=== PATIENT | female | born 1940 | race Caucasian/White ===

== ENCOUNTER → 2020-12-30 02:29 | Outpatient (CLI) | payer MEDICARE, OTHER, SELFPAY ==
[2020-12-30 22:46] LABS: SARS-CoV-2 RNA PCR Negative
== END ==
PROVIDERS: PCP Internal Medicine; Visit Provider Obstetrics & Gynecology
DX: Z01.812 Encounter for preprocedural laboratory examination (principal); Z20.822 Contact with and (suspected) exposure to COVID-19
CPT/HCPCS: C9803; U0003; U0005

== ENCOUNTER 2020-12-30 12:54 | Outpatient (CLI) | payer MEDICARE, OTHER, SELFPAY ==
--- NOTE | 2020-12-30 13:12 | ECG_ITS ---
Measurements Intervals Stollings Rate: 57 P: 32 KS: 156 QRS: 11 QRSD: 89 T: 30 QT: 401 QTc: 392 Interpretive Statements SINUS BRADYCARDIA BASELINE ARTIFACT- I, II, III, AVR, AVL, AVF, V1-V6 BORDERLINE ECG Electronically Signed On 12-30-2020 13:56:43 [employer] by Stanley Oscar D.O.
[2020-12-30 13:35] LABS: Hematocrit 42.1 % (37.0-47.0); Hemoglobin 13.9 g/dL (12.0-15.0)
== END 2020-12-30 12:55 | disposition home or self-care (01) ==
PROVIDERS: PCP Internal Medicine; Visit Provider Obstetrics & Gynecology
DX: Z01.818 Encounter for other preprocedural examination (principal); N95.0 Postmenopausal bleeding; I10 Essential (primary) hypertension; R94.31 Abnormal electrocardiogram [ECG] [EKG]
CPT/HCPCS: 36415; 85014; 85018; 93005

== ENCOUNTER 2021-01-02 01:00 | Day surgery (SDC) | payer MEDICARE, OTHER, SELFPAY ==
[2020-12-29 15:06] VITALS: BMI 18.9
--- NOTE | 2020-12-30 11:31 | PM.IMHP ---
H&P: HPI History of Present Illness Date/Time: 12/30/20 11:31 Chief Complaint: postmenopausal bleeding Narrative: Opal Segura is a 80 year old female admitted for hysteroscopy dilatation curettage secondary to vaginal bleeding. She has never taken hormones. She is not sexually active. She noticed red discharge vaginally and she underwent an exam which showed red blood cells. Risks and benefits of hysteroscopy and dilatation and curettage reviewed in full. She received the ACOG handout entitled hysteroscopy as well as dilatation and curettage respectively. She had all questions answered. She asked to proceed Review of Systems Review of Systems: All systems reviewed & are unremarkable except as noted in HPI and below PMFSH Social History Social History Smoking status: Never smoker Spiritual care concerns: No Meds Home Medications and Allergies Home Medications Medication Instructions Recorded Confirmed Type brinzolamide [Azopt] 1 drp OPHTHALMIC (EYE) DAILY 12/29/20 12/29/20 History levothyroxine 50 mcg PO DAILY 12/29/20 12/29/20 History metoprolol tartrate 50 mg PO DAILY 12/29/20 12/29/20 History raloxifene 60 mg PO DAILY 12/29/20 12/29/20 History timolol maleate 1 drp OPHTHALMIC (EYE) DAILY 12/29/20 12/29/20 History Allergies Allergy/AdvReac Type Severity Reaction Status Date / Time No Known Allergies Allergy Verified 12/29/20 14:33 Exam Const: General: no acute distress Eyes: General: appearance normal, both eyes and all related structures Neck: Neck: supple and no JVD Thyroid: thyroid normal Resp: Effort & Inspection: normal respiratory effort Auscultation: clear to auscultation bilaterally Cardio: Rate: regular rate Rhythm: regular rhythm GI: Inspection: non-distended GI Palp: Yes Soft to palpation, No Tenderness to palpation present (GI) and No Guarding due to palpation present (GI) Auscultation: normal bowel sounds : General: Yes bladder normal to inspection External Female Exam: normal external appearance Speculum Exam - Vagina: vaginal bleeding Speculum Exam - Cervix: Cervical os closed Bimanual exam- vagina & uterus: uterine size normal Skin: General skin exam: no rashes or lesions noted Extrem: General: normal to inspection and no edema Psych: Mental Status: mental status grossly normal Affect: normal affect Assessment and Plan Additional Plan impression: Postmenopausal bleeding Plan: Hysteroscopy / dilatation curettage
--- NOTE | 2021-01-02 06:31 | WPDHPUPDATE1 ---
History and Physical Update Update Date/Time: 01/02/21 06:31 History and Physical has been reviewed, including an updated exam of the patient. There are NO changes in the patient's condition. Risks, benefits, and alternatives have been discussed and questions answered. Patient agrees to proceed with procedure.
[2021-01-02] MEDS: ACETAMINOPHEN 500 MG TABLET 1000 MG PO (08:28)
[2021-01-02 08:32] VITALS: BP 137/87; PULSE 65; RESP 16; TEMP 36.3; O2SAT 100
--- NOTE | 2021-01-02 08:40 | WPDANESEPPF ---
Anes - Initial Pre Proc Eval Procedure: Operation Date: 01/02/21 10:15 Proposed Procedures p Hysteroscopy Dilation and Curettage - Hunter Fitzpatrick MD Date/Time: 01/02/21 08:40 Surgeon: Hunter Fitzpatrick MD Pre Op Diagnosis: Post Menopausal Bleeding Patient Data Age: 80 Gender: F Height: 1.6 m Weight: 48 kg Last Vital Signs Temp 36.3 C L 01/02/21 08:32 Pulse 65 01/02/21 08:32 Resp 16 01/02/21 08:32 BP 137/87 01/02/21 08:32 Pulse Ox 100 01/02/21 08:32 Allergies Allergy/AdvReac Type Severity Reaction Status Date / Time No Known Allergies Allergy Verified 01/02/21 08:23 Home Medications Medication Instructions Recorded Confirmed Type brinzolamide [Azopt] 1 drp OPHTHALMIC (EYE) DAILY 12/29/20 12/29/20 History levothyroxine 50 mcg PO DAILY 12/29/20 12/29/20 History metoprolol tartrate 50 mg PO DAILY 12/29/20 12/29/20 History raloxifene 60 mg PO DAILY 12/29/20 12/29/20 History timolol maleate 1 drp OPHTHALMIC (EYE) DAILY 12/29/20 12/29/20 History hydrocodone-acetaminophen 1 tablet PO Q6H PRN #14 tablet 01/02/21 Rx Patient hx anesthesia problems: none Family hx anesthesia problems: none PMFSH Past Medical History Medical History (Updated 01/02/21 @ 08:41 by Reg Mloina MD) HTN (hypertension) Hypothyroidism Social History Social History Smoking status: Never smoker Living arrangements: with family Spiritual care concerns: No Anes - Eval Final PreProcedure Day of Procedure 01/02/21 08:40 Patient weight: overweight Heart: regular rate and rhythm Lungs: clear to auscultation and normal air movement Airway: Mallampati scale class II Neurological: alert and oriented Last oral intake: >/= 8 hours ASA classification: II Emergent: no Anesthetic plan: proceed Anesthesia type and monitoring: general GIVS Informed Consent: The patient's anesthetic plan and its attendant risks and benefits were discussed with the patient/family/POA. Questions were solicited and answers provided to the satisfaction of the patient/family/POA.
[2021-01-02] MEDS: LACTATED RINGERS 1,000 ML 30 ML IV CONT (08:43)
--- NOTE | 2021-01-02 10:20 | P.OP_ITS ---
Procedure Note - Detailed Date of procedure: 01/02/21 Pre-op diagnosis: Post Menopausal Bleeding Surgeon: Hunter Fitzpatrick MD Postop diagnosis: Postmenopausal bleeding/suspicious appearing uterine polyp Procedure: Hysteroscopy: Dilatation curettage: Polypectomy. Anesthesia: IV sedation local EBL: 5cc Complications: None Findings: Uterus sounded to 8cm. The uterine polyp that was suspicious for adenocarcinoma of the endometrium. Description of procedure: The patient was prepped draped in the normal sterile fashion placed in the dorsal lithotomy position. Under excellent IV sedation weighted speculum was placed in posterior fornix of vagina. Anterior lip of the cervix grasped with single-tooth tenaculum and 2.5cc of 1% xylocaine anesthesia placed at 2, 4, 8, 10:00 a.m. on the cervix. The uterus sounded to 8cm. Serial dilatation with fragmented dilators performed followed by passage of the 5mm visualizing hysteroscope. Normal saline was used as visualizing medium. A moderate-sized polyp was seen at the uterine fundus. Using the polyp forceps this was grasped and removed piecemeal. The uterus was then scraped over the entire 360? until a good grating sound was heard. The instruments removed. Blood loss was estimated at5cc. All sponge, needle, instrument counts were cor rect. There were no immediate complications
[2021-01-02 10:27] VITALS: BP 100/63; PULSE 58; RESP 16; O2SAT 97
[2021-01-02 10:55] VITALS: BP 120/75; PULSE 55; RESP 16; O2SAT 97
== END 2021-01-02 11:11 | disposition home or self-care (01) ==
PROVIDERS: PCP Internal Medicine; Visit Provider Obstetrics & Gynecology
PROC: 0U5B8ZZ Destruction of Endometrium, Via Natural or Artificial Opening Endoscopic (ICD-10-PCS; CPT 58563; principal; 2021-01-02 10:15)
DX: C54.1 Malignant neoplasm of endometrium (principal); N95.0 Postmenopausal bleeding; I10 Essential (primary) hypertension; E03.9 Hypothyroidism, unspecified
CPT/HCPCS: 58558; 36415; 85014; 85018; 88305; 88342; 93005; A9270; C9803; J2704; J3010; J7030; J7120; U0003; U0005

== ENCOUNTER 2021-01-12 14:32 | Outpatient (CLI) | payer MEDICARE, OTHER, SELFPAY ==
--- NOTE | ~2021-01-12 | CT_ITS ---
EXAMINATION: CT abdomen pelvis w con DATE: 01/12/2021 15:00 INDICATION: Endometrial adenocarcinoma. Status post dilatation and curettage. Diarrhea. TECHNIQUE: Computed tomography (CT) of the abdomen and pelvis was performed with 100 cc Omnipaque 350 intravenous contrast. Automated exposure control and iterative reconstruction technique were employe d. Exam dose: 194.56 mGy-cm total exam DLP. COMPARISON: None. FINDINGS: Normal heart size. No pericardial or pleural effusion. The lower lung zones are clear. There are scattered hepatic cysts measuring up to approximately 1 cm maximal dimension. No suspicious solid hepatic lesion is evident. The gallbladder is present. No bile duct dilatation. There is mild prominence of the pancreatic duct throughout, measuring up to 3 mm diameter. No pancrea tic mass lesion is evident. No pancreatic calcification. Normal splenic size. Normal morphology of the adrenal glands. 4.5 cm circular hypoenhancing lateral mid to lower right renal indeterminate cortical lesion. There are multiple left renal cysts, measuring up to approximately 3 cm maximal dimension. No urinary tract calculus or hydroureteronephrosis is evident. There is atherosclerotic calcification of the abdominal aorta but no aneurysm. No intraperitoneal or retroperitoneal or pelvic mass lesion or adenopathy or ascites is evident. There is prominent soft tissue density within the endometrial cavity, measuring up to 1.4 cm AP dimen sarina, which may be consistent with clinical history of endometrial adenocarcinoma and/or blood within the endometrial cavity post dilatation and curettage. There is diverticulosis of the sigmoid colon; no CT evidence of diverticulitis. No bowel obstruction, bowel wall thickening, pneumatosis or intraperitoneal free air. The appendix is not definitively loc alized. There is no evidence of appendicitis. 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 Degenerative change at the apophyseal joints of the lumb ar and lumbosacral area with associated grade 1 anterolisthesis at L4-5.. No suspicious osteolytic or osteoblastic lesions are noted. IMPRESSION: Endometrial thickening and enhancement; this may be due to endometrial carcinoma and/or blood within the endometrial cavity post dilatation and curettage Hepatic cysts Mild diffuse prominence of the pancreatic duct; no pancreatic mass lesion is visualized Indeterminate 4.5 mm circular hypoenhancing lateral mid to lower right renal cortical lesion; conside r 6-[address] follow-up Multiple left renal cysts Diverticulosis of the sigmoid colon Reviewed, dictated and finalized at [facility]. Reviewed, dictated and finalized at [facility]. IMPRESSION: Endometrial thickening and enhancement; this may be due to endomet rial carcinoma and/or blood within the endometrial cavity post dilatation and c urettage Hepatic cysts Mild diffuse prominence of the pancreatic duct; no pancreatic mass lesion is vi sualized Indeterminate 4.5 mm circular hypoenhancing lateral mid to lower right renal co rtical lesion; consider 6-[address] follow-up Multiple left renal cysts Diverticulosis of the sigmoid colon
[2021-01-12 14:53] LABS: Estimated Glomerular Filt Rate > 60
== END 2021-01-12 14:33 | disposition home or self-care (01) ==
PROVIDERS: PCP Internal Medicine; Visit Provider Obstetrics & Gynecology
DX: C54.1 Malignant neoplasm of endometrium (principal); K57.30 Diverticulosis of large intestine without perforation or abscess without bleeding; K76.89 Other specified diseases of liver
CPT/HCPCS: 74177; Q9967

== ENCOUNTER 2021-02-06 10:25 | Outpatient (CLI) | payer MEDICARE, OTHER, SELFPAY ==
[2021-02-06 10:45] LABS: Basophils Percent Auto 0.3 % (0.2-1.2); Eosinophils Absolute Auto 0.1 K/mm3 (0-0.3); Eosinophils Percent Auto 0.9 % (0-4.4); Hematocrit 44.4 % (37.0-47.0); Hemoglobin 14.8 g/dL (12.0-15.0); Immature Granulocyte Absolute 0.01 K/mm3 (0.00-0.031); Immature Granulocyte Percent A 0.2 % (0-0.5); Lymphocytes Absolute Auto 1.33 K/mm3 (0.9-3.2); Mean Corpuscular HGB Conc 33.3 g/dl (32-36); Mean Corpuscular Hemoglobin 32.8 pg (26-34); Mean Corpuscular Volume 98.4 fl (80-100); Mean Platelet Volume 9.8 fl (7.4-10.4); Monocytes Absolute Auto 0.4 K/mm3 (0.1-0.6); Monocytes Percent Auto 7.4 % (2.6-8.5); Neutrophils Absolute Auto 3.9 K/mm3 (1.3-6.7); Neutrophils Percent Auto 68.2 % (45.5-73.1); Platelet Count Result 272 k/mm3 (150-375); Red Blood Count 4.51 M/mm3 (4.2-5.4); Red Cell Distribution Width 12.8 % (11.5-14.5); White Blood Count 5.8 K/mm3 (4.5-10.0)
== END 2021-02-06 10:26 | disposition home or self-care (01) ==
LOC: ANHSURGERY 10:31
PROVIDERS: PCP Internal Medicine; Visit Provider Obstetrics & Gynecology
DX: C54.1 Malignant neoplasm of endometrium (principal); Z01.818 Encounter for other preprocedural examination
CPT/HCPCS: 36415; 85025; 86850; 86900; 86901

== ENCOUNTER → 2021-02-10 03:28 | Outpatient (CLI) | payer MEDICARE, OTHER, SELFPAY ==
[2021-02-10 20:30] LABS: SARS-CoV-2 RNA PCR Negative
== END ==
PROVIDERS: PCP Internal Medicine; Visit Provider Obstetrics & Gynecology
DX: Z01.812 Encounter for preprocedural laboratory examination (principal); Z20.822 Contact with and (suspected) exposure to COVID-19
CPT/HCPCS: C9803; U0003; U0005

== ENCOUNTER 2021-02-13 01:43 | Day surgery (SDC) | payer MEDICARE, OTHER, SELFPAY ==
[2021-01-30 14:37] VITALS: BMI 18.9
--- NOTE | 2021-02-11 12:11 | P.HP_ITS ---
H&P: HPI History of Present Illness Date/Time: 02/11/21 12:11 80-year-old 1 para 1 is admitted for robotic total vaginal hysterectomy and bilateral salpingo-oophorectomy. She has undergone hysteroscopy dilatation curettage with a grade 1 stage I endometrial cancer biopsy. She opted to undertake this procedure with me verses a manager perioperative oncologist. Risks and benefits were reviewed including but not exclusive of , aspiration pneumonia, bleeding, transfusion, perforation injury with bowel, bladder, ureters, or other internal organs with need for open laparotomy. She received the ACOG handout entitled hysterectomy as well as the de Rohan handout. She had all questions answered. She asked to proceed Chief Complaint: endometrial cancer Review of Systems Review of Systems: All systems reviewed & are unremarkable except as noted in HPI and below PMFSH Past Medical History Medical History HTN (hypertension) Hypothyroidism Social History Social History Smoking status: Never smoker Alcohol intake: current Drinks per week: 4 Spiritual care concerns: No Meds Home Medications and Allergies Home Medications Medication Instructions Recorded Confirmed Type brinzolamide [Azopt] 1 drp OPHTHALMIC (EYE) BID 12/29/20 01/30/21 History levothyroxine 50 mcg PO DAILY 12/29/20 01/30/21 History metoprolol tartrate 50 mg PO BID 12/29/20 01/30/21 History raloxifene 60 mg PO DAILY 12/29/20 01/30/21 History timolol maleate 1 drp OPHTHALMIC (EYE) BID 12/29/20 01/30/21 History calcium-vitamin D3-vitamin K 1 tablet PO BID 01/30/21 01/30/21 History [Viactiv] cyanocobalamin (vitamin B-12) 5,000 mcg PO DAILY 01/30/21 01/30/21 History loperamide [Imodium] 2 mg PO PRN PRN 01/30/21 01/30/21 History Allergies Allergy/AdvReac Type Severity Reaction Status Date / Time No Known Allergies Allergy Verified 01/30/21 14:20 Exam Const: General: no acute distress Eyes: General: appearance normal, both eyes and all related structures Neck: Neck: supple and no JVD Thyroid: thyroid normal Resp: Effort & Inspection: normal respiratory effort Auscultation: clear to auscultation bilaterally Cardio: Rate: regular rate Rhythm: regular rhythm GI: Inspection: non-distended GI Palp: Yes Soft to palpation, No Tenderness to palpation present (GI) and No Guarding due to palpation present (GI) Auscultation: normal bowel sounds : General: Yes bladder normal to palpation External Female Exam: normal external appearance Speculum Exam - Vagina: normal vaginal discharge and No vaginal bleeding Speculum Exam - Cervix: nontender Bimanual exam- vagina & uterus: bladder normal to palpation and No Cervical tenderness present OB/external & speculum: No vaginal bleeding Skin: General skin exam: no rashes or lesions noted Extrem: General: normal to inspection and no edema Psych: Mental Status: mental status grossly normal Affect: normal affect Assessment and Plan Additional Plan impression: Grade [address] normal CT findings Plan: Robotic total vaginal hysterectomy and bilateral salpingo-oophorectomy
--- NOTE | 2021-02-12 10:50 | P.PNAN_ITS ---
Anes - Initial Pre Proc Eval Procedure: Operation Date: 02/13/21 07:30 Proposed Procedures p Robotic Assisted Total Vaginal Hysterectomy, Bilateral Salpingo-Oophorectomy - Hunter Fitzpatrick MD Date/Time: 02/12/21 10:50 Surgeon: Hunter Fitzpatrick MD Pre Op Diagnosis: endometrial CA, post menopausal bleeding Patient Data Age: 80 Gender: F Height: 1.6 m Weight: 48.55 kg Allergies Allergy/AdvReac Type Severity Reaction Status Date / Time No Known Allergies Allergy Verified 02/13/21 06:28 Home Medications Medication Instructions Recorded Confirmed Type brinzolamide [Azopt] 1 drp OPHTHALMIC (EYE) BID 12/29/20 01/30/21 History levothyroxine 50 mcg PO DAILY 12/29/20 01/30/21 History metoprolol tartrate 50 mg PO BID 12/29/20 01/30/21 History raloxifene 60 mg PO DAILY 12/29/20 01/30/21 History timolol maleate 1 drp OPHTHALMIC (EYE) BID 12/29/20 01/30/21 History calcium-vitamin D3-vitamin K 1 tablet PO BID 01/30/21 01/30/21 History [Viactiv] cyanocobalamin (vitamin B-12) 5,000 mcg PO DAILY 01/30/21 01/30/21 History loperamide [Imodium] 2 mg PO PRN PRN 01/30/21 01/30/21 History hydrocodone-acetaminophen 1 tablet PO Q4H PRN #30 tablet 02/13/21 Rx Patient hx anesthesia problems: none Family hx anesthesia problems: none [facility] Past Medical History Medical History (Updated 02/13/21 @ 06:01 by Hunter Fitzpatrick MD) Endometrial ca HTN (hypertension) Hypothyroidism Social History Social History Smoking status: Never smoker Alcohol intake: current Drinks per week: 4 Alcohol use details: WINE Living arrangements: with family Spiritual care concerns: No Anes - Eval Final PreProcedure Day of Procedure 02/12/21 10:50 Patient weight: normal Heart: regular rate and rhythm Lungs: clear to auscultation and normal air movement Airway: Mallampati scale class II Neurological: alert and oriented Last oral intake: >/= 8 hours ASA classification: III Emergent: no Anesthetic plan: proceed Anesthesia type and monitoring: general ETT Informed Consent: The patient's anesthetic plan and its attendant risks and benefits were discussed with the patient/family/POA. Questions were solicited and answers provided to the satisfaction of the patient/family/POA.
[2021-02-13] VITALS (11 sets, daily range): BP systolic 107–157; BP diastolic 70–89; PULSE 46–74; RESP 10–20; TEMP 36.1–36.9; O2SAT 96–100
--- NOTE | 2021-02-13 05:59 | WPDHPUPDATE1 ---
History and Physical Update Update Date/Time: 02/13/21 05:59 History and Physical has been reviewed, including an updated exam of the patient. There are NO changes in the patient's condition. Risks, benefits, and alternatives have been discussed and questions answered. Patient agrees to proceed with procedure.
[2021-02-13] MEDS: ACETAMINOPHEN 500 MG TABLET 1000 MG PO (06:32)
[2021-02-13] MEDS: KETOROLAC 15 MG/ML VIAL (*BKC) IV PUSH (06:33)
[2021-02-13] MEDS: LACTATED RINGERS 1,000 ML 30 ML IV CONT ×2 (06:33→08:52)
[2021-02-13] MEDS: ceFAZolin 2 GM/D5W 50 ML 2 GM/50 ML BAG IVPB (07:20)
--- NOTE | 2021-02-13 08:37 | P.OP_ITS ---
Procedure Note - Detailed Date of procedure: 02/13/21 Pre-op diagnosis: endometrial CA, post menopausal bleeding Surgeon: Hunter Fitzpatrick MD Postop diagnosis: Postmenopausal bleeding/grade 1 endometrial cancer Procedure: Robotic total vaginal hysterectomy and bilateral salpingo- oophorectomy EBL: 25cc Anesthesia: General endotracheal Complications: None Findings: Small uterus ovaries and tubes Description of procedure: The patient was prepped and draped in the normal sterile fashion placed in the dorsal lithotomy position. Excellent general trach anesthesia weighted speculum placed in posterior fornix of vagina. Anterior lip of the cervix grasped with single-tooth tenaculum the uterus stanislav nded to 9cm. Serial dilatation with fragmented dilators performed followed by passage of a 8. MINH and the 2. A half cold cup. A 16 Spanish catheter was placed in the bladder draining clear urine. The weighted speculum was removed and the gloves were changed. A supraumbilical incision made the Veress needle passed in the abdomen. The abdomen filled with CO2 gas [id number]. The 8mm trocar advanced in the abdomen. The downside visualized no injury seen. The gas reattached in the patient placed in Trendelenburg. Right left lateral quadrant incisions were made 8mm trocars advanced under direct visualization assuring no injury. A right upper quadrant incision made the 8mm trocar advanced under direct visualization assuring no injury. Robot was docked. Attention was turned to the youth counselor. The round ligament on the left was grasped, burned, cut. Anteriorly bladder flap was formed by sharply dissecting the bladder and reflecting it caudally away from the cervix and uterus to the opposite round ligament which was clamped, burned, cut. The left infundibulopelvic structure was skeletonized to remove the left ovary and tube. This was serially clamped, burned, cut and brought to the level of the previously cut round ligament. In like fashion removing the right ovary and tube the the infundibulopelvic structure was clamped, burned, cut and brought to level the was cut round ligament. The left cardinal broad ligaments were serially skeletonized. These were brought down the lateral edge of the cervix and uterus by clamping cutting and burning. The uterine vessels were seen and these were individually clamped, burned, cut. In like fashion the cardinal broad ligaments on the right were serially skeletonized. These were clamped, burned, cut and brought down lateral edge of the uterus until the uterine vessels could be seen. Each uterine vessel was clamped, burned, cut individually. Colpotomy incision was made cervix uterus ovaries and tubes removed through the vagina. Blood loss estimated [id number]. The vagina was closed with continuous running 0V lock from lateral edge to lateral edge back to the midline. Blood loss was estimated 25cc. The robot was undocked. The gas removed from the abdomen. The trocars removed and the incisions closed with 4 Monocryl and glue. Instruments removed from the vagina and the patient was awakened. All sponge, needle, instrument counts were correct. There were no immediate complications
[2021-02-13] MEDS: fentaNYL CITRATE INJ (*CRX) 100 MCG/2 ML VIAL 25 MCG IV PUSH ×4 (09:06→09:33)
--- NOTE | 2021-02-13 09:44 | SUR.PHASEI ---
[phone] sbar faxed floor notified
--- NOTE | 2021-02-13 10:29 | PC.NURSE ---
This patient, Opal Segura, was received from PACU on 02/13/21 at 1043 per bed. Patient oriented to unit policies and routines
--- NOTE | 2021-02-13 10:42 | PC.NURSE ---
This patient, Opal Segura, was received from [ ] on 02/13/21 at 1042. Patient/family oriented to unit policies and routines
[2021-02-13] MEDS: DEXTROSE 5%/LACTATED RINGERS 1,000 ML 125 ML IV CONT (10:56)
[2021-02-13] MEDS: HYDROcodone/acetaminophen (*CRX) 5-325 MG TABLET 1 TAB PO (16:50)
[2021-02-13] MEDS: IBUPROFEN 600 MG TABLET PO (16:51)
[2021-02-13] MEDS: DOCUSATE SODIUM 100 MG CAPSULE PO (16:51)
[2021-02-13] MEDS: FUROSEMIDE 20 MG TABLET PO (17:47)
[2021-02-14] VITALS: BP 100/50; PULSE 66; RESP 18; TEMP 37; O2SAT 100
[2021-02-14 05:05] VITALS: BP 89/68; PULSE 71; RESP 18; TEMP 37.2; O2SAT 100
[2021-02-14 05:52] LABS: Basophils Percent Auto 0.2 % (0.2-1.2); Eosinophils Percent Auto 0.1 % (0-4.4); Hematocrit 36.4 % (37.0-47.0); Hemoglobin 12.2 g/dL (12.0-15.0); Immature Granulocyte Absolute 0.03 K/mm3 (0.00-0.031); Immature Granulocyte Percent A 0.3 % (0-0.5); Lymphocytes Absolute Auto 1.62 K/mm3 (0.9-3.2); Lymphocytes Percent Auto 18.2 % (18.3-44.2); Mean Corpuscular HGB Conc 33.5 g/dl (32-36); Mean Corpuscular Volume 98.4 fl (80-100); Mean Platelet Volume 10.8 fl (7.4-10.4); Monocytes Absolute Auto 0.9 K/mm3 (0.1-0.6); Monocytes Percent Auto 10.2 % (2.6-8.5); Neutrophils Absolute Auto 6.3 K/mm3 (1.3-6.7); Platelet Count Result 194 k/mm3 (150-375); Red Cell Distribution Width 12.7 % (11.5-14.5); White Blood Count 8.9 K/mm3 (4.5-10.0)
[2021-02-14 06:50] VITALS: BP 135/68; PULSE 64; RESP 20; TEMP 36.7
[2021-02-14] MEDS: DOCUSATE SODIUM 100 MG CAPSULE PO (07:06)
[2021-02-14] MEDS: ENOXAPARIN 40 MG/0.4 ML SYRINGE SUB-Q (07:06)
--- NOTE | 2021-02-14 07:35 | P.PNAN_ITS ---
Anes - Prog Note Post-Op Date/Time: 02/14/21 07:35 Cardiovascular status: normal Respiratory status: normal Airway patency: baseline Mental status: baseline Post-Op hydration status: normal Vital Signs: Last Vital Signs Temp 36.7 C 02/14/21 06:50 Pulse 64 02/14/21 06:50 Resp 20 02/14/21 06:50 BP 135/68 02/14/21 06:50 Pulse Ox 100 02/14/21 05:05 Pain Score (VAS): 2 I/O: Intake & Output 02/13/21 02/13/21 02/14/21 15:59 23:59 07:59 Intake Total 300 1700 800 Output Total 40 1100 2100 Balance 260 600 -1300 Laboratory Tests 02/14/21 05:01 02/14/21 05:01 WBC 8.9 RBC 3.70 L Hgb 12.2 Hct 36.4 L MCV 98.4 MCH 33.0 MCHC 33.5 RDW 12.7 Plt Count 194 MPV 10.8 H Immature Gran % (Auto) 0.3 Neut % (Auto) 71.0 Lymph % (Auto) 18.2 L Hickman % (Auto) 10.2 H Eos % (Auto) 0.1 Baso % (Auto) 0.2 Lymph # (Auto) 1.62 Hickman # (Auto) 0.9 H Eos # (Auto) 0.0 Baso # (Auto) 0.0 Abs Immat Gran (auto) 0.03 Absolute Neuts (auto) 6.3 Absolute Nucleated RBC 0.0 Nucleated RBC % 0.0 Patient Feedback: Patient satisfied with anesthetic care.
--- NOTE | 2021-02-14 07:57 | PM.OBPNVD ---
OB - PN: Subj Subjective Date/time seen: 02/14/21 07:57 Patient comments: no complaints and pain well controlled OB - PN: Obj Data Labs CBC & Chem 7: 02/14/21 05:01 Labs: Laboratory Results - last 24 hr 02/14/21 05:01 WBC 8.9 RBC 3.70 L Hgb 12.2 Hct 36.4 L MCV 98.4 MCH 33.0 MCHC 33.5 RDW 12.7 Plt Count 194 MPV 10.8 H Immature Gran % (Auto) 0.3 Neut % (Auto) 71.0 Lymph % (Auto) 18.2 L Armstrong % (Auto) 10.2 H Eos % (Auto) 0.1 Baso % (Auto) 0.2 Lymph # (Auto) 1.62 Armstrong # (Auto) 0.9 H Eos # (Auto) 0.0 Baso # (Auto) 0.0 Abs Immat Gran (auto) 0.03 Absolute Neuts (auto) 6.3 Absolute Nucleated RBC 0.0 Nucleated RBC % 0.0 OB - PN A/P Plan day: 1 Plan: discharge home and follow up 6 weeks (2 weeks) Time Spent With Patient Time: Total time spent is greater than 50% in coordination of care (as documented) at patient's floor/unit and/or counseling patient: Time with patient: less than 15 minutes Review of Systems Review of Systems: All systems reviewed & are unremarkable except as noted in HPI and below Exam Const: General: no acute distress Eyes: General: appearance normal, both eyes and all related structures Neck: Neck: supple and no JVD Thyroid: thyroid normal Resp: Effort & Inspection: normal respiratory effort Auscultation: clear to auscultation bilaterally Cardio: Rate: regular rate Rhythm: regular rhythm GI: Inspection: normal to inspection and incision (cdi) Percussion: Yes normal to percussion Auscultation: normal bowel sounds Skin: General skin exam: no rashes or lesions noted Extrem: General: normal to inspection and no edema Psych: Mental Status: mental status grossly normal Affect: normal affect
--- NOTE | 2021-02-14 07:58 | PM.DS ---
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 She also underwent hernia repair in the umbilicus. Her hospital course was unremarkable. She remained afebrile. She was up, voiding without difficulty, ambulating, eating a regular diet, and generally without complaints Time Spent with Patient Time attestation: Total time spent providing and/or coordinating discharge services: Exam Const: General: no acute distress Eyes: General: appearance normal, both eyes and all related structures Neck: Neck: supple and no JVD Thyroid: thyroid normal Resp: Effort & Inspection: normal respiratory effort Auscultation: clear to auscultation bilaterally Cardio: Rate: regular rate Rhythm: regular rhythm GI: Inspection: non-distended GI Palp: Yes Soft to palpation, No Tenderness to palpation present (GI) and No Guarding due to palpation present (GI) Auscultation: normal bowel sounds : General: Yes bladder normal to palpation External Female Exam: normal external appearance Speculum Exam - Vagina: normal vaginal discharge and No vaginal bleeding Speculum Exam - Cervix: nontender Bimanual exam- vagina & uterus: bladder normal to palpation and No Cervical tenderness present OB/external & speculum: No vaginal bleeding Skin: General skin exam: no rashes or lesions noted Extrem: General: normal to inspection and no edema Psych: Mental Status: mental status grossly normal Affect: normal affect DS: Data Data Completed and Pending Pending studies at discharge: Pending at discharge 02/13/21 08:15 Surgical [PTH] Routine Labs on day of discharge: Labs from last 24 hours 02/14/21 05:01 WBC 8.9 RBC 3.70 L Hgb 12.2 Hct 36.4 L MCV 98.4 MCH 33.0 MCHC 33.5 RDW 12.7 Plt Count 194 MPV 10.8 H Immature Gran % (Auto) 0.3 Neut % (Auto) 71.0 Lymph % (Auto) 18.2 L [place] % (Auto) 10.2 H Eos % (Auto) 0.1 Baso % (Auto) 0.2 Lymph # (Auto) 1.62 [place] # (Auto) 0.9 H Eos # (Auto) 0.0 Baso # (Auto) 0.0 Abs Immat Gran (auto) 0.03 Absolute Neuts (auto) 6.3 Absolute Nucleated RBC 0.0 Nucleated RBC % 0.0 Discharge Plan Discharge Patient Disposition: Home, Self-Care Stand Alone Forms: General Discharge Instructions Follow-up/Referrals: Hunter Fitzpatrick MD [Physician] - Discharge Medications: New hydrocodone-acetaminophen 5-325 mg tablet 1 tablet PO Q4H PRN (Reason: pain) Qty: 30 RF: 0 No Action brinzolamide [Azopt] 1 % drops,suspension 1 drp ophthalmic (eye) BID RF: 0 levothyroxine 50 mcg tablet 50 mcg PO DAILY RF: 0 metoprolol tartrate 50 mg tablet 50 mg PO BID RF: 0 raloxifene 60 mg tablet 60 mg PO DAILY RF: 0 timolol maleate 0.5 % drops 1 drp ophthalmic (eye) BID RF: 0 calcium-vitamin D3-vitamin K [Viactiv] 650 mg-12.5 mcg-40 mcg Tablet,Chewable 1 tablet PO BID RF: 0 cyanocobalamin (vitamin B-12) 5,000 mcg Capsule 5,000 mcg PO DAILY RF: 0 loperamide [Imodium] 2 mg Capsule 2 mg PO PRN PRN (Reason: Diarrhea) RF: 0
== END 2021-02-14 10:01 | disposition home or self-care (01) ==
LOC: ANHSURGERY 06:01 → ANHOB2 10:28
PROVIDERS: PCP Internal Medicine; Visit Provider Obstetrics & Gynecology
PROC: (CPT 58552; principal; 2021-02-13 07:30)
DX: C54.1 Malignant neoplasm of endometrium (principal); D25.1 Intramural leiomyoma of uterus; N95.0 Postmenopausal bleeding; Z20.822 Contact with and (suspected) exposure to COVID-19; I10 Essential (primary) hypertension; E03.9 Hypothyroidism, unspecified
CPT/HCPCS: 58552; S2900; 36415; 85025; 86850; 86900; 86901; 88307; 88309; 99199; A9270; C9803; J0330; J0690; J1100; J1170; J1650; J1885; J2704; J2710; J3010; J7030; J7120; J7121; U0003; U0005

== ENCOUNTER 2021-06-11 04:34 | Day surgery (SDC) | payer MEDICARE, OTHER, SELFPAY ==
[2021-06-02 14:29] VITALS: BMI 19.5
[2021-06-11 09:49] VITALS: BP 136/72; PULSE 57; RESP 14; TEMP 36.2; O2SAT 99
[2021-06-11] MEDS: LACTATED RINGERS 1,000 ML 150 ML IV CONT (09:57)
--- NOTE | 2021-06-11 10:14 | WPDGICN ---
Assessment and Plan Assessment and plan (1) LLQ abdominal pain: Code(s): R10.32 - Left lower quadrant pain Status: Acute Assessment and Plan: Left lower quadrant abdominal pain since her hysterectomy. This may be postoperative pain. Cannot exclude inflammation in the colon. This will be evaluated at time of colonoscopy. (2) Rectal bleeding: Code(s): K62.5 - Hemorrhage of anus and rectum Status: Acute Assessment and Plan: Intermittent rectal bleeding over the last year. Suspicious for hemorrhoids. Plan is for colonoscopy to assess more thoroughly. High-fiber stool softener such as Metamucil as encourage. Further recommendations will be given subsequently. (3) Endometrial ca: Code(s): C54.1 - Malignant neoplasm of endometrium Status: Acute Assessment and Plan: Endometrial cancer resected in January of this year. GI Consult Note Consult date/time: 06/11/21 10:14 HPI: Opal Segura is a 80 year old female Complains of 4-5 episodes of bright red blood per rectum over the last 1 year. Patient states she will notice blood primarily with wiping. She states her bowels habits tend to be softer. Occasionally with diarrhea. In January of this year she underwent hysterectomy. In February she was found to have endometrial cancer that required a hysterectomy. Subsequent to that she has had a left lower quadrant pain. She states she remains tender in the left lower quadrant. It does not seem to change too much with bowel habits but may intensify a small degree. Patient's family history is noncontributory. Patient denies any fever. He denies any cramping. She presents today for colonoscopy. Review of Systems Review of Systems: All systems reviewed & are unremarkable except as noted in HPI and below PMFSH Past Medical History Medical History (Updated 06/11/21 @ 10:16 by Shiva Arredondo MD) Endometrial ca HTN (hypertension) Hypothyroidism Social History Social History Smoking status: Never smoker Alcohol intake: current Drinks per week: 4 Alcohol use details: glass of wine 3-4 times weekly Substance use: never Substance use type: does not use Living arrangements: with family Additional living arrangements comments: lives with spouse Gender identity (if verbalized by the patient): Female Sexual Orientation (if Verbalized by the Patient): Straight or Heterosexual Spiritual care concerns: No Meds Home Medications and Allergies Home Medications Medication Instructions Recorded Confirmed Type brinzolamide [Azopt] 1 drp OPHTHALMIC (EYE) BID 12/29/20 06/11/21 History levothyroxine 50 mcg PO DAILY 12/29/20 06/11/21 History metoprolol tartrate 50 mg PO BID 12/29/20 06/11/21 History raloxifene 60 mg PO DAILY 12/29/20 06/11/21 History timolol maleate 1 drp OPHTHALMIC (EYE) BID 12/29/20 06/11/21 History calcium-vitamin D3-vitamin K 1 tablet PO BID 01/30/21 06/11/21 History [Viactiv] cyanocobalamin (vitamin B-12) 5,000 mcg PO DAILY 01/30/21 06/11/21 History loperamide [Imodium] 2 mg PO PRN PRN 01/30/21 06/11/21 History Allergies Allergy/AdvReac Type Severity Reaction Status Date / Time No Known Allergies Allergy Verified 06/02/21 14:25 Vital Signs Vital Signs - 24 hr 06/11/21 09:49 Temperature 97.2 F L Pulse Rate 57 L Respiratory Rate 14 Blood Pressure 136/72 Pulse Oximetry 99 Exam Narrative: Physical exam reveals patient be alert. Vital signs stable. HEENT exam is unremarkable. Patient is anicteric. Lungs are clear to auscultation and percussion. Heart is without murmur or extra sounds. Abdominal exam bowel sounds are present soft she has mild left lower quadrant tenderness. No masses are listed. Digital external rectal exam is normal.
--- NOTE | 2021-06-11 10:25 | WPDANESEPPF ---
Anes - Initial Pre Proc Eval Procedure: Operation Date: 06/11/21 11:00 Proposed Procedures p Colonoscopy - Shiva Arredondo MD Date/Time: 06/11/21 10:25 Surgeon: Shiva Arredondo MD Pre Op Diagnosis: rectal bleeding Patient Data Age: 80 Gender: F Height: 1.6 m Weight: 48.8 kg Last Vital Signs Temp 97.2 F L 06/11/21 09:49 Pulse 57 L 06/11/21 09:49 Resp 14 06/11/21 09:49 BP 136/72 06/11/21 09:49 Pulse Ox 99 06/11/21 09:49 Allergies Allergy/AdvReac Type Severity Reaction Status Date / Time No Known Allergies Allergy Verified 06/02/21 14:25 Home Medications Medication Instructions Recorded Confirmed Type brinzolamide [Azopt] 1 drp OPHTHALMIC (EYE) BID 12/29/20 06/11/21 History levothyroxine 50 mcg PO DAILY 12/29/20 06/11/21 History metoprolol tartrate 50 mg PO BID 12/29/20 06/11/21 History raloxifene 60 mg PO DAILY 12/29/20 06/11/21 History timolol maleate 1 drp OPHTHALMIC (EYE) BID 12/29/20 06/11/21 History calcium-vitamin D3-vitamin K 1 tablet PO BID 01/30/21 06/11/21 History [Viactiv] cyanocobalamin (vitamin B-12) 5,000 mcg PO DAILY 01/30/21 06/11/21 History loperamide [Imodium] 2 mg PO PRN PRN 01/30/21 06/11/21 History Patient hx anesthesia problems: none Family hx anesthesia problems: none [facility] Past Medical History Medical History (Updated 06/11/21 @ 10:16 by Shiva Arredondo MD) Endometrial ca HTN (hypertension) Hypothyroidism Social History Social History Smoking status: Never smoker Alcohol intake: current Drinks per week: 4 Alcohol use details: glass of wine 3-4 times weekly Substance use: never Substance use type: does not use Living arrangements: with family Additional living arrangements comments: lives with spouse Gender identity (if verbalized by the patient): Female Sexual Orientation (if Verbalized by the Patient): Straight or Heterosexual Spiritual care concerns: No Anes - Eval Final PreProcedure Day of Procedure 06/11/21 10:25 Patient weight: normal Heart: regular rate and rhythm Lungs: clear to auscultation Airway: Mallampati scale class II Neurological: alert and oriented Last oral intake: >/= 8 hours ASA classification: III Emergent: no Anesthetic plan: proceed Anesthesia type and monitoring: general GIVS and standard monitoring Informed Consent: The patient's anesthetic plan and its attendant risks and benefits were discussed with the patient/family/POA. Questions were solicited and answers provided to the satisfaction of the patient/family/POA.
[2021-06-11 11:06] VITALS: BP 98/56; PULSE 64; RESP 24; O2SAT 100
[2021-06-11 11:16] VITALS: BP 102/59; PULSE 58; RESP 20; O2SAT 100
[2021-06-11 11:26] VITALS: BP 112/68; PULSE 54; RESP 20; O2SAT 100
== END 2021-06-11 11:39 | disposition home or self-care (01) ==
PROVIDERS: PCP Internal Medicine; Referring Provider Obstetrics & Gynecology; Visit Provider Internal Medicine Gastroenterology
PROC: 0DJD8ZZ Inspection of Lower Intestinal Tract, Via Natural or Artificial Opening Endoscopic (ICD-10-PCS; CPT 45378; principal; 2021-06-11 11:00)
DX: K62.5 Hemorrhage of anus and rectum (principal); D12.5 Benign neoplasm of sigmoid colon; D12.2 Benign neoplasm of ascending colon; R10.32 Left lower quadrant pain; C54.1 Malignant neoplasm of endometrium; K57.30 Diverticulosis of large intestine without perforation or abscess without bleeding; K64.8 Other hemorrhoids; K63.5 Polyp of colon; E03.9 Hypothyroidism, unspecified; Z85.42 Personal history of malignant neoplasm of other parts of uterus
CPT/HCPCS: 45385; 88305; J2704; J7120

== ENCOUNTER 2021-07-24 07:25 | Outpatient (CLI) | payer MEDICARE, OTHER, SELFPAY ==
--- NOTE | ~2021-07-24 | CT_ITS ---
EXAMINATION: CT abdomen pelvis w con INDICATION: Left lower quadrant pain, history of uterine cancer TECHNIQUE: Computed tomographic images of the abdomen and pelvis were obtained after the administrati on of 100 cc of Omnipaque 350 intravenous contrast. The dose-length product (DLP) was 204.93 mGy-cm. Automated exposure control and iterative reconstruction technique were employed. COMPARISON: 01/12/2021 FINDINGS: The lung bases are clear. The heart size is normal. There are multiple new hypoattenuating lesions of the liver dome which measure up to 2.4 cm and appear to be implants on the liver surface. There are cysts of the liver which measure up to 9 mm. The spleen, pancreas, and adrenal glands are n ormal. Cysts of the kidneys measure up to 3.1 cm on the left. There is calcified atherosclerosis of t he aorta and many of the other arteries. There is a 3.4 x 2.7 cm soft tissue mass of the left pelvis. There is new omental thickening. There are nodular peritoneal implants in the pelvis. A small volume of pelvic ascites is present. There are new soft tissue masses of the right abdominal wall which bre sure up to 1.4 cm (image 80). A moderate volume of colonic stool is present. There is no free intrape ritoneal gas or evidence of bowel obstruction. There is severe lumbar spondylosis. IMPRESSION: 1. Left pelvic mass, omental caking, new soft tissue masses of the right abdominal wall, and peritone al implants of the left pelvis and on the liver surface, consistent with metastatic disease Reviewed, dictated and finalized at location A. IMPRESSION: 1. Left pelvic mass, omental caking, new soft tissue masses of the right abdomi nal wall, and peritoneal implants of the left pelvis and on the liver surface, consistent with metastatic disease
[2021-07-24 07:52] LABS: Estimated Glomerular Filt Rate > 60
== END 2021-07-24 07:26 | disposition home or self-care (01) ==
PROVIDERS: PCP Internal Medicine; Visit Provider Nurse Practitioner Family
DX: R10.32 Left lower quadrant pain (principal)
CPT/HCPCS: 74177; Q9967

== ENCOUNTER 2021-09-03 05:32 | Emergency (ER) | payer MEDICARE, OTHER, SELFPAY ==
--- NOTE | ~2021-09-03 | CT_ITS ---
EXAMINATION: CT abdomen pelvis w con DATE: 09/03/2021 06:38 INDICATION: Abdominal pain. TECHNIQUE: Computed tomography (CT) of the abdomen and pelvis was performed with 100 mL Omnipaque 350 intravenous contrast. Automated exposure control and iterative reconstruction technique were employe d. The dose-length product was 243.54 mGy-cm. COMPARISON: CT abdomen and pelvis 07/24/2021 FINDINGS: The visualized portions of the lung bases demonstrate mild atelectasis. No pleural effusion . There are at least 5 scattered pulmonary nodules measuring up to 9 mm in right lower lobe. No pleur al effusion. The heart size is normal. There are coronary artery calcifications. No pericardial effus ion. There are cysts in the liver measuring up to 12 mm. There are serosal implants on the liver surf huber. The gallbladder is normal in size. The spleen, pancreas, and adrenal glands are normal. There ar e cysts in the kidneys measuring up to 3.4 cm on the left. The appendix measures 8 mm in diameter, in creased from 4 mm on 07/24/2021. The ascending colon is distended. There is widespread peritoneal carc inomatosis. There is serosal metastatic disease involving the sigmoid colon, which demonstrates small caliber. There is a small volume of ascites. There are intramuscular masses in right anterior abdomi nal wall without change, likely metastatic disease involving a surgical site. There are no pathologic ally enlarged lymph nodes. There is lumbar levoscoliosis and severe spondylosis. IMPRESSION: 1. Worsened peritoneal carcinomatosis, worsened small volume of ascites, and stable pulmonary nodules , consistent with metastatic disease. 2. Distention of the ascending colon and appendix. Worsened serosal metastatic disease involving the sigmoid colon is suspicious for stricture. Reviewed, dictated and finalized at location A. [employer] IMPRESSION: 1. Worsened peritoneal carcinomatosis, worsened small volume of ascites, and st able pulmonary nodules, consistent with metastatic disease. 2. Distention of the ascending colon and appendix. Worsened serosal metastatic disease involving the sigmoid colon is suspicious for stricture.
[2021-09-03 05:38] VITALS: BP 146/87; PULSE 94; RESP 19; TEMP 36; O2SAT 100
[2021-09-03 05:44] VITALS: BP 146/87; PULSE 91; RESP 20; O2SAT 100
--- NOTE | 2021-09-03 05:53 | ED.GENADULT ---
HPI - General Adult General Chief complaint: Abdominal Pain Stated complaint: lower ABD pain Time Seen by Provider: 09/03/21 05:43 History of Present Illness HPI narrative: Patient 80-year-old female presents emergency department with chief complaint of abdominal pain. Patient reports she has history of medical static cancer in her abdomen patient reports that she was scheduled to have a port placed today and also scheduled to start chemotherapy tomorrow. The patient reports over the last several days she has had difficulty having bowel movements has had several small bowel movements reports that today her abdomen feels full and reports that it is hurting all throughout the abdomen. The patient reports is not relieved by anything at home and reports that she is also had nausea with this. The patient denies vomiting denies fever patient denies prior history of bowel obstruction. The patient reports that surgical history significant for a hysterectomy. Related Data Home Medications Medication Instructions Recorded Confirmed brinzolamide [Azopt] 1 drp OPHTHALMIC (EYE) BID 12/29/20 07/09/21 levothyroxine 50 mcg PO DAILY 12/29/20 07/09/21 metoprolol tartrate 50 mg PO BID 12/29/20 07/09/21 raloxifene 60 mg PO DAILY 12/29/20 07/09/21 timolol maleate 1 drp OPHTHALMIC (EYE) BID 12/29/20 07/09/21 calcium-vitamin D3-vitamin K 1 tablet PO BID 01/30/21 07/09/21 [Viactiv] cyanocobalamin (vitamin B-12) 5,000 mcg PO DAILY 01/30/21 07/09/21 Allergies Allergy/AdvReac Type Severity Reaction Status Date / Time No Known Allergies Allergy Verified 07/09/21 14:35 Review of Systems Review of Systems: A 10 system review of systems was completed on the patient and is negative except for what is stated in the HPI. Nursing and ancillary documentation was reviewed. [facility] Past Medical History Medical History Endometrial ca HTN (hypertension) Hypothyroidism Social History Social History Smoking status: Never smoker Alcohol intake: current Drinks per week: 4 Alcohol use details: glass of wine 3-4 times weekly Substance use: never Substance use type: does not use Additional living arrangements comments: lives with spouse Gender identity (if verbalized by the patient): Female Sexual Orientation (if Verbalized by the Patient): Straight or Heterosexual Spiritual care concerns: No Exam Narrative: GENERAL: Well-appearing, well-nourished, and in no acute distress. HEAD: Normocephalic, atraumatic. EYES: PERRLA and EOMI. ENT: Nares clear, no rhinorrhea or epistaxis. Mucous membranes moist. NECK: Supple. CHEST: Clear to auscultation. No respiratory distress. HEART: Regular rate and rhythm. No murmur heard. Normal peripheral pulses. ABDOMEN: Soft, diffuse tenderness to palpation, nondistended, normal active bowel sounds. EXTREMITIES: Normal range of motion. No edema. SKIN: Warm, dry, no rash. NEURO: No focal deficits. Alert and oriented x3. PSYCH: Normal mood and affect. Course Vital Signs Vital signs: Vital Signs Temperature 36.0 C L 09/03/21 05:38 Pulse Rate 94 09/03/21 05:38 Respiratory Rate 19 09/03/21 05:38 Blood Pressure 146/87 H 09/03/21 05:38 Pulse Oximetry 100 09/03/21 05:38 Temperature 36.0 C L 09/03/21 05:38 Pulse Rate 84 09/03/21 06:37 Respiratory Rate 18 09/03/21 06:37 Blood Pressure 128/70 09/03/21 06:37 Pulse Oximetry 97 09/03/21 06:37 Medical Decision Making Vital Signs Vital Signs: Vital Signs Temperature 36.0 C L 09/03/21 05:38 Pulse Rate 94 09/03/21 05:38 Respiratory Rate 19 09/03/21 05:38 Blood Pressure 146/87 H 09/03/21 05:38 Pulse Oximetry 100 09/03/21 05:38 Temperature 36.0 C L 09/03/21 05:38 Pulse Rate 84 09/03/21 06:37 Respiratory Rate 18 09/03/21 06:37 Blood Pressure 128/70 09/03/21 06
[2021-09-03 06:03] VITALS: BP 141/84; PULSE 85; RESP 12; O2SAT 99
[2021-09-03] MEDS: SODIUM CHLORIDE 0.9% IV 1,000 ML 999 ML IV CONT (06:04)
[2021-09-03] MEDS: ONDANSETRON INJ 4 MG/2 ML VIAL IV PUSH (06:04)
[2021-09-03] MEDS: HYDROmorphone HCL INJ (*CRX) 1 MG/ML SYR IV PUSH (06:05)
[2021-09-03 06:17] LABS: Alanine Aminotransferase 19 U/L (4-35); Albumin Level 4.1 g/dL (3.5-5.1); Alkaline Phosphatase 81 U/L (38-126); Anion Gap 12 mmol/L (8-16); Aspartate Amino Transferase 32 U/L (14-36); Bilirubin,Total 0.6 mg/dL (0.2-1.3); Blood Urea Nitrogen 10 mg/dL (7-17); Calcium 9.5 mg/dL (8.4-10.2); Carbon Dioxide 25 mmol/L (22-30); Chloride 95 mmol/L (98-107); Estimated CRCL calculation 39 ml/min; Estimated Glomerular Filt Rate > 60; Glucose 137 mg/dL (65-110); Lipase 47 U/L (23-300); Potassium 3.5 mmol/L (3.4-5.0); Sodium 132 mmol/L (137-145)
[2021-09-03 06:30] LABS: Basophils Percent Auto 0.3 % (0.2-1.2); Eosinophils Percent Auto 0.2 % (0-4.4); Hematocrit 37.8 % (37.0-47.0); Hemoglobin 12.5 g/dL (12.0-15.0); Immature Granulocyte Absolute 0.04 K/mm3 (0.00-0.031); Immature Granulocyte Percent A 0.3 % (0-0.5); Lymphocytes Absolute Auto 1.91 K/mm3 (0.9-3.2); Lymphocytes Percent Auto 16.2 % (18.3-44.2); Mean Corpuscular HGB Conc 33.1 g/dl (32-36); Mean Corpuscular Hemoglobin 30.3 pg (26-34); Mean Corpuscular Volume 91.5 fl (80-100); Monocytes Absolute Auto 0.8 K/mm3 (0.1-0.6); Monocytes Percent Auto 6.7 % (2.6-8.5); Neutrophils Percent Auto 76.3 % (45.5-73.1); Platelet Count Result 467 k/mm3 (150-375); Red Blood Count 4.13 M/mm3 (4.2-5.4); Red Cell Distribution Width 12.2 % (11.5-14.5); White Blood Count 11.8 K/mm3 (4.5-10.0)
[2021-09-03 06:30] LABS: Add Urine Microscopic? YES; Appearance Urine Cloudy (Clear); Bilirubin Urine 1+ (Negative); Blood Urine 1+ (Negative); Color Urine Amber (Yellow); Glucose Urine UA Negative (Negative); Hyaline Casts Urine 15-19 /lpf; Ketones Urine 1+ mg/dL (Negative); Leukocyte Esterase Ur 1+ LEU/UL (Negative); Mucus Urine Heavy /lpf; Nitrate Urine Negative (Negative); Protein Urine 1+ mg/dL (Negative); Specific Grav Ur 1.028 (1.001-1.035); Squamous Epithelial Cell Urine Moderate /hpf (Few)
[2021-09-03 06:37] VITALS: BP 128/70; PULSE 84; RESP 18; O2SAT 97
== END 2021-09-03 07:24 | disposition home or self-care (01) ==
PROVIDERS: Emergency Provider Emergency Medicine; PCP Internal Medicine
DX: R10.84 Generalized abdominal pain (principal); C54.1 Malignant neoplasm of endometrium; E03.9 Hypothyroidism, unspecified; I10 Essential (primary) hypertension
CPT/HCPCS: 36415; 74177; 80053; 81001; 83690; 85025; 87086; 87088; 96361; 96374; 96375; 99284; J1170; J2405; J7030; Q9967